=== PATIENT | male | born 1930 | race Hispanic/Latino ===

== ENCOUNTER 2018-08-15 19:04 | Emergency (ER) | payer OTHER ==
[2018-08-15] MEDS ORDERED: NA CHLORIDE 0.9% 500 ML ONE (19:50)
[2018-08-15 20:03] LABS: Absolute Lymphocytes (CBC) 1.1 K/uL (0.7-4.9); Absolute Monocytes 0.4 K/uL (0.1-1.3); Absolute Neutrophil 4.5 K/uL (1.8-8.0); Basophils % 0.9 % (0-1.3); Eosinophils % 1.8 % (0-4.4); Hematocrit 34.9 % (39.6-49.0); Lymphocytes % 17.2 % (15.3-44.8); MCV 86.5 fL (80-100); Monocytes % 7.3 % (3.3-12.3); RBC Red Blood Cell Count 4.03 M/uL (4.33-5.43)
--- NOTE | 2018-08-15 20:18 | RAD REPORT ---
EXAM DESCRIPTION: CT - Head Brain Wo Cont - 08/15/2018 8:00 pm CLINICAL HISTORY: Dizziness COMPARISON: February 2017 TECHNIQUE: Computed axial tomography of the head was obtained. IV contrast was not requested. All CT scans are performed using dose optimization technique as appropriate and may include automated exposure control or mA/KV adjustment according to patient size. FINDINGS: An intracranial bleed is not seen . The ventricles are normal in caliber. No extra-axial fluid collection is noted. 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 . Fluid within the sinuses/ mastoids is not seen. IMPRESSION: No acute intracranial abnormality is seen. If patient's symptoms persist MRI of the bra in would be recommended.
[2018-08-15 20:33] LABS: Magnesium 1.7 mg/dL (1.8-2.4); Potassium 3.6 mmol/L (3.5-5.1)
[2018-08-15] MEDS ORDERED: MECLIZINE HCL 12.5 MG TAB ONE (21:00)
[2018-08-15] MEDS ORDERED: MAGNESIUM SULFATE 1 gm IVPB 1 GM/100 ML BAG IV ONE (21:01)
--- NOTE | 2018-08-15 21:15 | ER ---
Nurse's Notes [facility] Name: John Witt Age: 87 yrs Sex: Male : 1930 Arrival Date: 08/15/2018 Time: 19:05 Bed 6 Private MD: Cherelle Hurtado H Diagnosis: Dizziness and giddiness;Vertigo;Dehydration Presentation: 08/15 19:34 Presenting complaint: Patient states: For the past month when he wakes up and when he aj1 lays down to go to sleep at night he feels like everything is leaning off to one side. Reports that he was Dr. Hurtado, his PHCP, regarding this problem, but they are waiting for results and he did not give him any medicine to make the feeling go away. States he feels like his balance is off, but only first thing in the morning and right when he goes to bed. Denies pain. Transition of care: patient was not received from another setting of care. Onset of symptoms was June 2018. Risk Assessment: Do you want to hurt yourself or someone else? Patient reports no desire to harm self or others. Initial Sepsis Screen: Does the patient meet any 2 criteria? HR > 90 bpm. No. Patient's initial sepsis screen is negative. Does the patient have a suspected source of infection? No. Patient's initial sepsis screen is negative. Care prior to arrival: None. 19:34 Method Of Arrival: Wheelchair aj1 19:34 Acuity: SONJA 3 aj1 Triage Assessment: 19:36 General: Appears in no apparent distress. comfortable, Behavior is calm, cooperative, aj1 appropriate for age. Pain: Denies pain. Neuro: Level of Consciousness is awake, alert, obeys commands, Reports dizziness. Cardiovascular: Patient's skin is warm and dry. Respiratory: Airway is patent Respiratory effort is even, unlabored, Respiratory pattern is regular, symmetrical. Historical: - Allergies: 19:36 No Known Allergies; aj1 - Home Meds: 19:36 insulin [Active]; blood pressure medicine [Active]; aj1 - PMHx: 19:36 Hypertension; Diabetes - NIDDM; aj1 - Immunization history:: Flu vaccine is not up to date. - Social history:: Smoking status: Patient/guardian denies using tobacco. - Ebola Screening: : Patient denies travel to an Ebola-affected area in the 21 days before illness onset. - Family history:: not pertinent. - Hospitalizations: : No recent hospitalization is reported. Screenin:19 Abuse screen: Denies threats or abuse. Denies injuries from another. Nutritional ao screening: No deficits noted. Tuberculosis screening: No symptoms or risk factors identified. Fall Risk None identified. Assessment: 19:40 General: Appears in no apparent distress. comfortable, Behavior is calm, cooperative, ao appropriate for age. Pain: Denies pain. Neuro: Level of Consciousness is awake, alert, obeys commands, Oriented to person, place, time, situation, Appropriate for age Moves all extremities. Full function Speech is normal, Facial symmetry appears normal. Neuro: Reports dizziness, since two months ago. Cardiovascular: Capillary refill < 3 seconds Patient's skin is warm and dry. Respiratory: Airway is patent Respiratory effort is even, unlabored, Respiratory pattern is regular, symmetrical. GI: Abdomen is round obese. GI: Bowel sounds present X 4 quads. : No signs and/or symptoms were reported regarding the genitourinary system. EENT: No signs and/or symptoms were reported regarding the EENT system. Derm: Skin is intact, Skin is dry, Skin is pink, warm \T\ dry. normal, Skin temperature is warm. Musculoskeletal: Circulation, motion, and sensation intact. Range of motion: intact in all extremities. 20:20 Reassessment: Patient appears in no apparent distress at this time. Patient and/or ao family updated on plan of care and expected duration. Pain level reassessed. Waiting on Lab work. 21:43 Reassessment: DC pending for magnesium to be complete. ao Vital Signs: 19:36 BP 194 / 84; Pulse 91; Resp 17; Temp 97.2; Pulse Ox 96% on R/A; Pain 0/10; aj1 20:20 BP 154 / 70; Pulse 59; Resp 16; Pulse Ox 98% ; Pain 0/10; ao 21:43 BP 176 / 74; Pulse 64; Resp 16; Pulse Ox 99% ; Pain 0/10; ao ED Course: 19:05 Patient arrived in ED. al2 19:06 Cherelle Hurtado DO is Private Physician. al2 19:18 Stanislaw Jaime, RAMU is Primary Nurse. ao 19:19 Maurilio Portillo MD is Attending Physician. rn 19:36 Triage completed. aj1 19:36 Arm band placed on Patient placed in an exam room, Patient Patient triaged in room, Dr. janette Portillo at bedside during triage. 19:55 EKG done, by ED staff, reviewed by Maurilio Portillo MD. Inserted saline lock: 20 gauge in ao right antecubital area, using aseptic technique. Blood collected. 19:59 CT completed. Patient moved to CT via wheelchair. Patient moved back from CT. cw1 20:01 CT Head Brain wo Cont In Process Unspecified. EDMS 20:19 Patient has correct armband on for positive identification. Pulse ox on. NIBP on. ao 21:12 Cherelle Hurtado DO is Referral Physician. rn 22:11 No provider procedures requiring assistance completed. IV discontinued, intact, ao bleeding controlled, No redness/swelling at site. Pressure dressing applied. Administered Medications: 20:10 Drug: NS 0.9% 500 ml Route: IV; Rate: bolus; Site: right antecubital; ao 21:09 Follow up: IV Status: Completed infusion; IV Intake: 500ml ao 21:00 Drug: Magnesium Sulfate 1 grams Route: IVPB; Infused Over: 1 hrs; Site: right ao antecubital; 22:06 Follow up: IV Status: Completed infusion; IV Intake: 100ml ao 21:00 Drug: Meclizine 50 mg Route: PO; ao 22:05 Follow up: Response: No adverse reaction ao Point of Care Testing: Blood Glucose: 20:12 Blood Glucose: 129 mg/dL; ao Ranges: Intake: 21:09 IV: 500ml; Total: 500ml. ao 22:06 IV: 100ml; Total: 600ml. ao Outcome: 21:14 Discharge ordered by . rn 22:12 Discharged to home ambulatory. ao 22:12 Condition: stable 22:12 Discharge instructions given to patient, Instructed on discharge instructions, follow up and referral plans. Demonstrated understanding of instructions, follow-up care, Prescriptions given X 2. 22:13 Patient left the ED. ao Signatures: Dispatcher [employer] EDMS Andreina Contreras RN RN aj1 Nieto, Roman, MD MD rn Woodley, Crystal cw1 Stanislaw Jaime RN RN ao Love, Angelica al2
--- NOTE | 2018-08-15 21:15 | EDPHYS ---
Physician Documentation [facility] Name: John Witt Age: 87 yrs Sex: Male : 1930 Arrival Date: 08/15/2018 Time: 19:05 Bed 6 Private MD: Cherelle Hurtado H ED Physician Maurilio Portillo HPI: 08/15 19:46 This 87 yrs old Male presents to ER via Wheelchair with complaints of rn Dizziness. 19:46 The patient presents with dizziness, sense of spinning. Onset: The symptoms/episode rn began/occurred 1 month(s) ago. Context: occurred at home, occurred while the patient was getting up from bed. Modifying factors: The symptoms are alleviated by nothing, the symptoms are aggravated by standing up, changing position. Severity of symptoms: At their worst the symptoms were mild in the emergency department the symptoms are unchanged. The patient has experienced similar episodes in the past. Reports 1 month ago began having dizzy/spinning episodes when getting out of bed, no vomiting, no headache, no other focal neurological complaints, has seen his pcp for this recently, getting outpt workup, did not get worse, just frustrated that is still happening. Nothing seems to help. Sometimes gets episode throughout the day. Feels off balance. . Historical: - Allergies: 19:36 No Known Allergies; aj1 - Home Meds: 19:36 insulin [Active]; blood pressure medicine [Active]; aj1 - PMHx: 19:36 Hypertension; Diabetes - NIDDM; aj1 - Immunization history:: Flu vaccine is not up to date. - Social history:: Smoking status: Patient/guardian denies using tobacco. - Ebola Screening: : Patient denies travel to an Ebola-affected area in the 21 days before illness onset. - Family history:: not pertinent. - Hospitalizations: : No recent hospitalization is reported. ROS: 19:46 Constitutional: Negative for fever, chills, and weight loss, Eyes: Negative for injury, rn pain, redness, and discharge, Neck: Negative for injury, pain, and swelling, Cardiovascular: Negative for chest pain, palpitations, and edema, Respiratory: Negative for shortness of breath, cough, wheezing, and pleuritic chest pain, Abdomen/GI: Negative for abdominal pain, nausea, vomiting, diarrhea, and constipation, MS/Extremity: Negative for injury and deformity, Skin: Negative for injury, rash, and discoloration, Neuro: Negative for headache, weakness, numbness, tingling, and seizure. Exam: 19:46 Constitutional: This is a well developed, well nourished patient who is awake, alert, rn and in no acute distress. Head/Face: Normocephalic, atraumatic. Eyes: Pupils equal round and reactive to light, extra-ocular motions intact. Lids and lashes normal. Conjunctiva and sclera are non-icteric and not injected. Cornea within normal limits. Periorbital areas with no swelling, redness, or edema. ENT: mmm Cardiovascular: Regular rate and rhythm with a normal S1 and S2. No gallops, murmurs, or rubs. Normal PMI, no JVD. No pulse deficits. Respiratory: Lungs have equal breath sounds bilaterally, clear to auscultation and percussion. No rales, rhonchi or wheezes noted. No increased work of breathing, no retractions or nasal flaring. Abdomen/GI: Soft, non-tender, with normal bowel sounds. No distension or tympany. No guarding or rebound. No evidence of tenderness throughout. Skin: Warm, dry with normal turgor. Normal color with no rashes, no lesions, and no evidence of cellulitis. MS/ Extremity: Pulses equal, no cyanosis. Neurovascular intact. Full, normal range of motion. Equal circumference. Neuro: Awake and alert, GCS 15, oriented to person, place, time, and situation. Cranial nerves II-XII grossly intact. Motor strength 5/5 in all extremities. Sensory grossly intact. Cerebellar exam normal. Normal gait. Vital Signs: 19:36 BP 194 / 84; Pulse 91; Resp 17; Temp 97.2; Pulse Ox 96% on R/A; Pain 0/10; aj1 20:20 BP 154 / 70; Pulse 59; Resp 16; Pulse Ox 98% ; Pain 0/10; ao 21:43 BP 176 / 74; Pulse 64; Resp 16; Pulse Ox 99% ; Pain 0/10; ao MDM: 19:19 Patient medically screened. rn 21:10 Differential diagnosis: generalized weakness, hypovolemia, idiopathic dizziness, rn vertigo. Differential diagnosis: cardiac arrhythmia, CVA. Data reviewed: vital signs, nurses notes. Data reviewed: lab test result(s), EKG, radiologic studies, CT scan, and as a result, I will discharge patient. Counseling: I had a detailed discussion with the patient and/or guardian regarding: the historical points, exam findings, and any diagnostic results supporting the discharge/admit diagnosis, lab results, radiology results, the need for outpatient follow up, to return to the emergency department if symptoms worsen or persist or if there are any questions or concerns that arise at home. Response to treatment: the patient's symptoms have markedly improved after treatment, and as a result, I will discharge patient. Special discussion: I discussed with the patient/guardian in detail that at this point there is no indication for admission to the hospital. It is understood, however, that if the symptoms persist or worsen the patient needs to return immediately for re-evaluation. Based on the history and exam findings, there is no indication for further emergent testing or inpatient evaluation. I discussed with the patient/guardian the need to see the neurologist for further evaluation of the symptoms. ED course: CT head negative for acute findings, neg w/u except for dehydration/hypomagnesemia. Story sounds like combination of dehydration and vertigo. Recommend for water and neuro f/u. . 08/15 19:34 Order name: Magnesium; Complete Time: 20:34 rn 08/15 19:34 Order name: Basic Metabolic Panel; Complete Time: 20:34 rn 08/15 19:34 Order name: CT Head Brain wo Cont; Complete Time: 20:19 rn 08/15 19:34 Order name: CBC with Diff; Complete Time: 20:19 rn 08/15 21:09 Order name: Urine Dipstick--Ancillary (enter results) mw2 08/15 19:34 Order name: EKG; Complete Time: 19:35 rn 08/15 19:34 Order name: Cardiac monitoring; Complete Time: 20:11 rn 08/15 19:34 Order name: EKG - Nurse/Tech; Complete Time: 20:12 rn 08/15 19:34 Order name: IV Saline Lock; Complete Time: 19:56 rn 08/15 19:34 Order name: Labs collected and sent; Complete Time: 19:56 rn 08/15 19:34 Order name: NPO; Complete Time: 19:56 rn 08/15 19:34 Order name: O2 Per Protocol; Complete Time: 20:16 rn 08/15 19:34 Order name: O2 Sat Monitoring; Complete Time: 20:16 rn 08/15 19:34 Order name: Urine Dipstick-Ancillary (obtain specimen); Complete Time: 21:11 rn 08/15 19:34 Order name: Glucose Level; Complete Time: 20:11 rn Administered Medications: 20:10 Drug: NS 0.9% 500 ml Route: IV; Rate: bolus; Site: right antecubital; ao 21:09 Follow up: IV Status: Completed infusion; IV Intake: 500ml ao 21:00 Drug: Magnesium Sulfate 1 grams Route: IVPB; Infused Over: 1 hrs; Site: right ao antecubital; 22:06 Follow up: IV Status: Completed infusion; IV Intake: 100ml ao 21:00 Drug: Meclizine 50 mg Route: PO; ao 22:05 Follow up: Response: No adverse reaction ao Point of Care Testing: Blood Glucose: 20:12 Blood Glucose: 129 mg/dL; ao Ranges: Critical Glucose Levels:Adult <50 mg/dl or >400 mg/dl <40 mg/dl or >180 mg/dl Disposition: 08/15/18 21:14 Discharged to Home. Impression: Dizziness and giddiness, Vertigo, Dehydration. - Condition is Stable. - Discharge Instructions: Dehydration, Adult, Dizziness, Vertigo. - Prescriptions for Meclizine 25 mg Oral Tablet - take 1 tablet by ORAL route every 12 hours As needed; 20 tablet. - Medication Reconciliation Form, Thank You Letter, Antibiotic Education, Prescription Opioid Use form. - Follow up: Cherelle Hurtado DO; When: As needed; Reason: Recheck today's complaints, Re-evaluation by your physician. - Problem is an ongoing problem. - Symptoms have improved. Signatures: Dispatcher [employer] EDAndreina Dalal RN RN aj1 Maurilio Portillo MD MD rn Ortiz, Alex, RN RN ao Corrections: (The following items were deleted from the chart) 22:13 21:14 08/15/2018 21:14 Discharged to Home. Impression: Dizziness and giddiness; ao Vertigo; Dehydration. Condition is Stable. Forms are Medication Reconciliation Form, Thank You Letter, Antibiotic Education, Prescription Opioid Use. Follow up: Cherelle Hurtado; When: As needed; Reason: Recheck today's complaints, Re-evaluation by your physician. Problem is an ongoing problem. Symptoms have improved. rn
[2018-08-15 21:34] LABS: Urine Blood 1+ (NEG); Urine Glucose NEGATIVE (NEG); Urine Protein 3+ (NEG); Urine Specific Gravity 1.025 (1.005-1.030)
--- NOTE | 2018-08-16 17:34 | EKG ---
Test Date: 2018-08-15 Test Time: 20:12:09 [employer] Teacher: MARK MEASUREMENT RESULTS: Intervals: Rate: 68 FL: 234 QRSD: 108 QT: 408 QTc: 433 [place]: P: 74 FL: 234 QRS: -14 T: 58 INTERPRETIVE STATEMENTS: Sinus rhythm with sinus arrhythmia with 1st degree AV block Otherwise normal ECG Compared to ECG 08/13/2018 11:44:25 No significant changes Electronically Signed On 08-16-18 17:33:28 CDT by aMrk [place]
== END 2018-08-15 22:13 | disposition home or self-care (01) ==
LOC: ER 19:04
DX: E86.0 Dehydration (principal); I10 Essential (primary) hypertension; E11.9 Type 2 diabetes mellitus without complications; Z79.4 Long term (current) use of insulin
CPT/HCPCS: 36415; 70450; 80048; 81003; 82962; 83735; 85025; 93005; 96361; 96365; 99285; J3475